=== PATIENT | female | born 1955 | race Caucasian/White ===

== ENCOUNTER 2016-11-02 20:44 | Inpatient (IN) | payer OTHER ==
[~2016-11-02] VITALS: Ht 154.9 cm; Wt 65.5 kg
[2016-11-02 21:34] LABS: BASOPHIL % 0.3 % (0-2); PLATELET COUNT 205 x10^3mcL (130-400); RED CELL DISTRIBUTION WIDTH 13.6 % (11.5-14.5)
[2016-11-02 21:46] LABS: CALCIUM 9.2 mg/dL (8.5-10.1); CARBON DIOXIDE 29.8 mmol/L (21-32); CHLORIDE SERUM 99 mmol/L (98-107); CREATININE SERUM 0.7 mg/dL (0.6-1.0); GFR1 > 60 mL/min; GLUCOSE SERUM 295 mg/dL (74-106); POTASSIUM SERUM 4.2 mmol/L (3.5-5.1); SODIUM SERUM 139 mmol/L (136-145)
[2016-11-02 21:51] LABS: ALBUMIN 4.1 g/dL (3.4-5.0); ALKALINE PHOSPHATASE 159 U/L (46-116); ALT/SGPT 29 U/L (14-59); AST/SGOT 18 U/L (15-37); BILIRUBIN TOTAL 0.43 mg/dL (0.20-1.00); LIPASE 109 IU/L (73-393); TOTAL PROTEIN, SERUM 7.8 g/dL (6.4-8.2)
[2016-11-02 23:05] LABS: microscopic required? YES; urine erythrocyte NEGATIVE (NEGATIVE)
[2016-11-02] MEDS ORDERED: GLIPIZIDE2.5 M1 PO (23:48)
[2016-11-02] MEDS ORDERED: GLUCOPHAGE XR500 MG (23:48)
[2016-11-02] MEDS ORDERED: OSTERA TABLET1 EACH PO (23:48)
[2016-11-03 01:00] LABS: T3 TOTAL 1.47 ng/mL
[2016-11-03 01:01] LABS: FREE T4 1.1 ng/dL (0.76-1.46); FREE THYROXINE INDEX 3.6 ug/dL (1.4-4.5)
[2016-11-03 01:07] VITALS: BP 157/76
[2016-11-03 01:10] VITALS: Ht 154.9 cm; Wt 65.5 kg
[2016-11-03 01:27] LABS: CHOLESTEROL/HDL RATIO 2.8
[2016-11-03] MEDS ORDERED: LIPI10 PO (03:17)
[2016-11-03 04:35] LABS: AMPHETAMINE QUAL UR NONE DETECTED (NEG <=1000)
[2016-11-03 06:02] LABS: PLATELET COUNT 168 x10^3mcL (130-400); RED CELL DISTRIBUTION WIDTH 13.6 % (11.5-14.5)
[2016-11-03 06:03] VITALS: BP 108/56
[2016-11-03 06:17] LABS: CALCIUM 8.3 mg/dL (8.5-10.1); CARBON DIOXIDE 26.6 mmol/L (21-32); CHLORIDE SERUM 101 mmol/L (98-107); CREATININE SERUM 0.8 mg/dL (0.6-1.0); GFR1 > 60 mL/min; GLUCOSE SERUM 333 mg/dL (74-106); MAGNESIUM 1.6 mg/dL (1.8-2.4); PHOSPHOROUS 3.5 mg/dL (2.5-4.9); POTASSIUM SERUM 4.2 mmol/L (3.5-5.1); SODIUM SERUM 137 mmol/L (136-145)
[2016-11-03 09:00] LABS: BAND NEUTROPHIL 26 % (0-10); BASOPHIL 0 % (0-2); MONOCYTE 9 % (0-7); SEGMENTED NEUTROPHILS 63 % (37-75); rbc morphology (normal/abnorm) NORMAL (NORMAL)
[2016-11-03 10:39] VITALS: BP 125/62
[2016-11-03 13:38] VITALS: BP 142/74
[2016-11-03 18:01] VITALS: BP 135/74
[2016-11-03 22:05] VITALS: BP 114/66
[2016-11-04 05:48] VITALS: BP 115/61
[2016-11-04 06:15] LABS: BASOPHIL % 0.4 % (0-2); PLATELET COUNT 137 x10^3mcL (130-400); RED CELL DISTRIBUTION WIDTH 13.8 % (11.5-14.5)
[2016-11-04 06:41] LABS: CALCIUM 7.9 mg/dL (8.5-10.1); CARBON DIOXIDE 26.5 mmol/L (21-32); CHLORIDE SERUM 107 mmol/L (98-107); CREATININE SERUM 0.6 mg/dL (0.6-1.0); GFR1 > 60 mL/min; GLUCOSE SERUM 206 mg/dL (74-106); MAGNESIUM 2.2 mg/dL (1.8-2.4); POTASSIUM SERUM 3.8 mmol/L (3.5-5.1); SODIUM SERUM 140 mmol/L (136-145)
[2016-11-04 09:35] VITALS: BP 125/66
[2016-11-04] MEDS ORDERED: ZES10 PO (10:28)
[2016-11-04] MEDS ORDERED: LIPI10 PO (10:28)
[2016-11-04] MEDS ORDERED: GLU850 PO (10:29)
[2016-11-04] MEDS ORDERED: GLU10 PO (10:29)
[2016-11-04] MEDS ORDERED: LEVAQUIN500 M1 PO (10:31)
[2016-11-04] MEDS ORDERED: LAC PO (10:31)
[2016-11-04 12:46] VITALS: BP 125/66
== END 2016-11-04 13:20 | disposition home or self-care (01) | DRG 463 ==
LOC: ED 20:44 → MU 23:27 → DU 23:27 → MU 11-04 08:29
PROVIDERS: Emergency Medicine; Family Medicine; ADMIT Family Medicine
DX: N12 Tubulo-interstitial nephritis, not specified as acute or chronic (principal); N17.0 Acute kidney failure with tubular necrosis; E11.65 Type 2 diabetes mellitus with hyperglycemia; D68.69 Other thrombophilia; N13.30 Unspecified hydronephrosis; K80.20 Calculus of gallbladder without cholecystitis without obstruction; E78.5 Hyperlipidemia, unspecified; M51.36 Other intervertebral disc degeneration, lumbar region; Z79.84 Long term (current) use of oral hypoglycemic drugs
CPT/HCPCS: 80307; 83880; 84439; J1885; J1956; J2270; J2405; J3475; J7030; Q0092; Q9967

== ENCOUNTER 2019-11-09 18:42 | Inpatient (IN) | payer OTHER ==
[~2019-11-09] VITALS: Ht 160 cm; Wt 52.2 kg
[~2019-11-09 18:42] MED LIST: GLIPIZIDE2.5 M1 PO; GLU10 PO; GLU850 PO; GLUCOPHAGE XR500 MG; LAC PO; LEVAQUIN500 M1 PO; LIPI10 PO; OSTERA TABLET1 EACH PO; ZES10 PO
[2019-11-09 19:52] LABS: UA SPECIFIC GRAVITY >=1.030 (1.005-1.035); microscopic required? YES; urine erythrocyte 2+ (NEGATIVE)
[2019-11-09 19:57] LABS: BASOPHIL % 0.1 % (0-2)
[2019-11-09 20:01] LABS: PLATELET COUNT 457 x10^3mcL (130-400); RED CELL DISTRIBUTION WIDTH 15.6 % (11.5-14.5)
[2019-11-09 20:24] LABS: CALCIUM 9.7 mg/dL (8.5-10.1); CARBON DIOXIDE 29.5 mmol/L (21-32); CHLORIDE SERUM 93 mmol/L (98-107); CREATININE SERUM 1.2 mg/dL (0.6-1.0); GFR1 48 mL/min; GLUCOSE SERUM 345 mg/dL (74-106); SODIUM SERUM 134 mmol/L (136-145); T3 TOTAL 0.76 ng/mL
[2019-11-09 20:34] LABS: ALKALINE PHOSPHATASE 154 U/L (46-116); ALT/SGPT 9 U/L (14-59); AST/SGOT 5 U/L (15-37); BILIRUBIN TOTAL 0.64 mg/dL (0.20-1.00); TOTAL PROTEIN, SERUM 7.9 g/dL (6.4-8.2)
[2019-11-09 20:36] LABS: ERYTHROCYTE SED RATE 95 mm/hr (0-30)
[2019-11-09 20:37] LABS: ALBUMIN 2.4 g/dL (3.4-5.0)
[2019-11-09 20:40] LABS: CK-MB < 0.5 ng/mL (0-3.6); CREATINE KINASE 13 U/L (26-192)
[2019-11-09 20:44] LABS: FREE T4 1.65 ng/dL (0.76-1.46); FREE THYROXINE INDEX 3.8 ug/dL (1.4-4.5); T4(THYROXINE) 10.9 ug/dL (4.7-13.3)
[2019-11-09 21:03] LABS: C REACTIVE PROTEIN 24.8 mg/dL (<=0.9)
[2019-11-09 22:33] VITALS: BP 115/44
[2019-11-10 05:31] VITALS: BP 120/57
[2019-11-10 07:20] LABS: CALCIUM 8.4 mg/dL (8.5-10.1); CARBON DIOXIDE 28.2 mmol/L (21-32); CHLORIDE SERUM 99 mmol/L (98-107); CREATININE SERUM 0.9 mg/dL (0.6-1.0); GFR1 > 60 mL/min; GLUCOSE SERUM 163 mg/dL (74-106); MAGNESIUM 1.5 mg/dL (1.8-2.4); POTASSIUM SERUM 4.7 mmol/L (3.5-5.1); SODIUM SERUM 135 mmol/L (136-145)
[2019-11-10 07:29] LABS: BASOPHIL % 0.2 % (0-2); PLATELET COUNT 353 x10^3mcL (130-400)
[2019-11-10 07:40] LABS: RED CELL DISTRIBUTION WIDTH 15.1 % (11.5-14.5)
[2019-11-10 07:50] VITALS: BP 115/61
[2019-11-10 12:41] VITALS: BP 99/54
[2019-11-10 17:27] VITALS: BP 100/58
[2019-11-10 17:48] VITALS: BP 131/77
[2019-11-10 19:50] VITALS: BP 108/69
[2019-11-11 05:18] VITALS: BP 126/61
[2019-11-11 06:49] LABS: CARBON DIOXIDE 25.1 mmol/L (21-32); CHLORIDE SERUM 99 mmol/L (98-107); CREATININE SERUM 0.7 mg/dL (0.6-1.0); GFR1 > 60 mL/min; GLUCOSE SERUM 173 mg/dL (74-106); MAGNESIUM 1.6 mg/dL (1.8-2.4); PHOSPHOROUS 2.6 mg/dL (2.5-4.9); POTASSIUM SERUM 3.9 mmol/L (3.5-5.1); SODIUM SERUM 133 mmol/L (136-145)
[2019-11-11 07:40] VITALS: BP 125/56
[2019-11-11 07:54] LABS: PLATELET COUNT 357 x10^3mcL (130-400)
[2019-11-11 08:20] LABS: RED CELL DISTRIBUTION WIDTH 15.8 % (11.5-14.5)
[2019-11-11 08:36] LABS: BAND NEUTROPHIL 1 % (0-10); BASOPHIL 0 % (0-2); MONOCYTE 2 % (0-7); SEGMENTED NEUTROPHILS 93 % (37-75)
[2019-11-11 08:37] LABS: PLATELET MORPHOLOGY PLATELETS INCREASED; rbc morphology (normal/abnorm) ABNORMAL (NORMAL)
[2019-11-11 09:31] VITALS: Ht 160 cm; Wt 52.2 kg
[2019-11-11 12:00] VITALS: BP 114/65
[2019-11-11 15:48] VITALS: BP 115/58
[2019-11-11 20:39] VITALS: BP 131/65
[2019-11-12 05:38] VITALS: BP 126/68
[2019-11-12 07:38] LABS: PLATELET COUNT 358 x10^3mcL (130-400)
[2019-11-12 07:45] LABS: CALCIUM 8.1 mg/dL (8.5-10.1); CARBON DIOXIDE 26.5 mmol/L (21-32); CHLORIDE SERUM 100 mmol/L (98-107); CREATININE SERUM 0.7 mg/dL (0.6-1.0); GFR1 > 60 mL/min; GLUCOSE SERUM 177 mg/dL (74-106); MAGNESIUM 1.6 mg/dL (1.8-2.4); POTASSIUM SERUM 3.9 mmol/L (3.5-5.1); SODIUM SERUM 133 mmol/L (136-145)
[2019-11-12 08:32] VITALS: BP 113/55
[2019-11-12 08:35] LABS: RED CELL DISTRIBUTION WIDTH 15.5 % (11.5-14.5)
[2019-11-12 12:17] VITALS: BP 133/70
[2019-11-12 13:46] LABS: BAND NEUTROPHIL 4 % (0-10); SEGMENTED NEUTROPHILS 86 % (37-75)
[2019-11-12 13:47] LABS: MONOCYTE 5 % (0-7); PLATELET MORPHOLOGY LARGE PLATELET SEEN; rbc morphology (normal/abnorm) ABNORMAL (NORMAL)
[2019-11-12 16:11] VITALS: BP 153/81
[2019-11-12 19:23] VITALS: BP 119/66
[2019-11-13 04:40] VITALS: BP 127/69
[2019-11-13 07:43] VITALS: BP 116/74
[2019-11-13 10:14] LABS: PLATELET COUNT 483 x10^3mcL (130-400)
[2019-11-13 10:24] LABS: CALCIUM 8.6 mg/dL (8.5-10.1); CARBON DIOXIDE 26.3 mmol/L (21-32); CHLORIDE SERUM 101 mmol/L (98-107); CREATININE SERUM 0.7 mg/dL (0.6-1.0); GFR1 > 60 mL/min; GLUCOSE SERUM 187 mg/dL (74-106); POTASSIUM SERUM 3.5 mmol/L (3.5-5.1); SODIUM SERUM 134 mmol/L (136-145)
[2019-11-13 11:46] VITALS: BP 137/77
[2019-11-13 13:58] LABS: BAND NEUTROPHIL 3 % (0-10); MONOCYTE 7 % (0-7); PLATELET MORPHOLOGY PLATELETS INCREASED; SEGMENTED NEUTROPHILS 85 % (37-75)
[2019-11-13 14:00] LABS: rbc morphology (normal/abnorm) ABNORMAL (NORMAL)
[2019-11-13 16:11] VITALS: BP 142/70
[2019-11-13 19:27] VITALS: BP 150/80
[2019-11-14 05:32] VITALS: BP 145/72
[2019-11-14 06:10] LABS: BASOPHIL % 0 % (0-2); PLATELET COUNT 466 x10^3mcL (130-400)
[2019-11-14 06:15] LABS: CALCIUM 8.6 mg/dL (8.5-10.1); CHLORIDE SERUM 103 mmol/L (98-107); CREATININE SERUM 0.6 mg/dL (0.6-1.0); GFR1 > 60 mL/min; GLUCOSE SERUM 204 mg/dL (74-106); MAGNESIUM 1.8 mg/dL (1.8-2.4); POTASSIUM SERUM 4.2 mmol/L (3.5-5.1); SODIUM SERUM 137 mmol/L (136-145)
[2019-11-14 07:48] VITALS: BP 157/83
[2019-11-14 16:31] VITALS: BP 142/76
[2019-11-14 20:26] VITALS: BP 151/64
[2019-11-15 05:26] VITALS: BP 117/66
[2019-11-15 06:54] LABS: BASOPHIL % 0.2 % (0-2)
[2019-11-15 06:57] LABS: PLATELET COUNT 471 x10^3mcL (130-400); RED CELL DISTRIBUTION WIDTH 15.8 % (11.5-14.5)
[2019-11-15 07:19] LABS: CALCIUM 8.1 mg/dL (8.5-10.1); CARBON DIOXIDE 27.7 mmol/L (21-32); CHLORIDE SERUM 105 mmol/L (98-107); CREATININE SERUM 0.5 mg/dL (0.6-1.0); GFR1 > 60 mL/min; GLUCOSE SERUM 174 mg/dL (74-106); POTASSIUM SERUM 3.7 mmol/L (3.5-5.1); SODIUM SERUM 138 mmol/L (136-145)
[2019-11-15 07:26] VITALS: BP 156/80
[2019-11-15 11:33] VITALS: BP 136/77
[2019-11-15 16:27] VITALS: BP 150/78
[2019-11-15 21:15] VITALS: BP 139/70
[2019-11-16 06:25] VITALS: BP 145/66
[2019-11-16 06:47] LABS: BASOPHIL % 0.3 % (0-2)
[2019-11-16 07:00] LABS: RED CELL DISTRIBUTION WIDTH 16.2 % (11.5-14.5)
[2019-11-16 07:10] LABS: CARBON DIOXIDE 32.5 mmol/L (21-32); CHLORIDE SERUM 104 mmol/L (98-107); CREATININE SERUM 0.7 mg/dL (0.6-1.0); GFR1 > 60 mL/min; GLUCOSE SERUM 164 mg/dL (74-106); POTASSIUM SERUM 4.2 mmol/L (3.5-5.1); SODIUM SERUM 141 mmol/L (136-145)
[2019-11-16 08:31] VITALS: BP 139/57
[2019-11-16 08:36] LABS: PLATELET COUNT 520 x10^3mcL (130-400)
[2019-11-16 12:05] VITALS: BP 162/76
[2019-11-16 16:33] VITALS: BP 158/83
[2019-11-16 19:34] VITALS: BP 144/69
[2019-11-17 04:50] VITALS: BP 160/78
[2019-11-17 07:05] LABS: CALCIUM 8.7 mg/dL (8.5-10.1); CARBON DIOXIDE 31.3 mmol/L (21-32); CHLORIDE SERUM 104 mmol/L (98-107); CREATININE SERUM 0.5 mg/dL (0.6-1.0); GFR1 > 60 mL/min; GLUCOSE SERUM 154 mg/dL (74-106); POTASSIUM SERUM 3.9 mmol/L (3.5-5.1); SODIUM SERUM 141 mmol/L (136-145)
[2019-11-17 07:23] LABS: BASOPHIL % 0.1 % (0-2)
[2019-11-17 07:24] LABS: PLATELET COUNT 458 x10^3mcL (130-400); RED CELL DISTRIBUTION WIDTH 15.7 % (11.5-14.5)
[2019-11-17 08:35] VITALS: BP 160/76
[2019-11-17 12:08] VITALS: BP 168/84
[2019-11-17 16:18] VITALS: BP 119/70
[2019-11-17 20:27] VITALS: BP 127/65
[2019-11-18 05:27] VITALS: BP 140/72
[2019-11-18 07:28] VITALS: BP 137/72
[2019-11-18 09:00] LABS: BASOPHIL % 0.3 % (0-2)
[2019-11-18 09:05] LABS: PLATELET COUNT 475 x10^3mcL (130-400); RED CELL DISTRIBUTION WIDTH 15.6 % (11.5-14.5)
[2019-11-18] MEDS ORDERED: LEVOFLOXACIN500 M1 PO (09:07)
[2019-11-18] MEDS ORDERED: LEV500 PO (09:08)
[2019-11-18 09:36] VITALS: BP 137/72
[2019-11-18 11:42] VITALS: BP 138/69
== END 2019-11-18 13:40 | disposition home or self-care (01) | DRG 720 ==
LOC: ED 18:42 → DU 21:02 → MU 11-14 13:16
PROVIDERS: Internal Medicine; Specialist; ADMIT Family Medicine
PROC: 0T9130Z Drainage of Left Kidney with Drainage Device, Percutaneous Approach (ICD-10-PCS; principal; 2019-11-11)
DX: A41.9 Sepsis, unspecified organism (principal); N17.0 Acute kidney failure with tubular necrosis; N15.1 Renal and perinephric abscess; N39.0 Urinary tract infection, site not specified; R65.20 Severe sepsis without septic shock; Z90.710 Acquired absence of both cervix and uterus; E11.9 Type 2 diabetes mellitus without complications; I10 Essential (primary) hypertension; E78.00 Pure hypercholesterolemia, unspecified; N28.89 Other specified disorders of kidney and ureter; E78.5 Hyperlipidemia, unspecified; Z79.899 Other long term (current) drug therapy; Z79.84 Long term (current) use of oral hypoglycemic drugs; N12 Tubulo-interstitial nephritis, not specified as acute or chronic; K80.20 Calculus of gallbladder without cholecystitis without obstruction
CPT/HCPCS: 32557; 82962; 84439; G0378; J0696; J1885; J2001; J2250; J2405; J2543; J3010; J3475; J3490; J7030; J7060; Q0092; Q9966; Q9967

== ENCOUNTER 2019-11-30 11:41 | Emergency (ER) | payer OTHER ==
[~2019-11-30] VITALS: Ht 157.5 cm; Wt 52.6 kg
[~2019-11-30 11:41] MED LIST changes: +LEV500 PO; +LEVOFLOXACIN500 M1 PO
[2019-11-30 12:04] VITALS: Ht 157.5 cm; Wt 52.6 kg
[2019-11-30 15:14] VITALS: BP 159/81
== END 2019-11-30 15:14 | disposition home or self-care (01) ==
LOC: ED 11:41
DX: Z93.6 Other artificial openings of urinary tract status (principal); Z48.01 Encounter for change or removal of surgical wound dressing; I10 Essential (primary) hypertension; E11.9 Type 2 diabetes mellitus without complications